=== PATIENT | male | born 1995 | race Caucasian/White ===

== ENCOUNTER → 2024-02-25 | Outpatient (CLI) | payer OTHER ==
[2024-02-28 08:06] LABS: BARTONELLA HENSELAE AB IGG <1:64; BARTONELLA HENSELAE AB IGM < 1:16; BARTONELLA QUINTANA AB, IGG <1:64; BARTONELLA QUINTANA AB, IGM < 1:16
== END | disposition home or self-care (01) ==
LOC: LAB 11:34 → LAB SHORT 11:34
PROVIDERS: Physician Assistant
DX: R59.0 Localized enlarged lymph nodes (principal)
CPT/HCPCS: 86611